=== PATIENT | female | born 1970 | race Two or more races ===

== ENCOUNTER 2018-07-17 16:22 | Emergency (ER) | payer MEDICAID ==
[~2018-07-17] VITALS: Ht 154.9 cm; Wt 95.3 kg
[2018-07-17 16:53] VITALS: BP 145/93
== END 2018-07-17 17:42 | disposition home or self-care (01) ==
LOC: ER 16:31
DX: R05 Cough (principal)
CPT/HCPCS: 71046

== ENCOUNTER 2025-05-08 02:29 | Emergency (ER) | payer MEDICAID, OTHER ==
[~2025-05-08] VITALS: Ht 154.9 cm; Wt 87.2 kg
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
[2025-05-08 03:12] LABS: Hematocrit 38.1 % (36.0-46.0); Hemoglobin 12.7 g/dL (12.2-16.2); Mean Corpuscular Hemoglobin 28.1 pg (28.0-32.0); Mean Corpuscular Volume 84.4 fL (80.0-100.0); Nucleated Red Blood Cells % 0.0 %
[2025-05-08 03:18] LABS: Chloride 102 mmol/L (98-107); Sodium 140 mmol/L (136-145)
[2025-05-08 03:19] LABS: Anion Gap 10 (5-15); Calcium 9.7 mg/dL (8.7-10.4); Carbon Dioxide 28 mmol/L (20-31)
[2025-05-08 03:21] LABS: Potassium 3.2 mmol/L (3.5-5.1)
[2025-05-08 03:24] LABS: BUN/Creatinine Ratio 16.3 (10.0-20.0); Blood Urea Nitrogen 13 mg/dL (9-23); Glucose 116 mg/dL (74-106)
--- NOTE | 2025-05-08 04:01 | DVH ---
CHEST RADIOGRAPH Indication: left upper chest wall pain Technique: Frontal and lateral view of the chest was obtained Comparison: None FINDINGS: Lines and Tubes: None Lungs: Clear. Right hemidiaphragmatic elevation. Pleura: No effusion. No pneumothorax. Cardiomediastinal contours: Unremarkable Bones: Unremarkable IMPRESSION: 1. No evidence of acute disease.
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
[2025-05-08 04:09] VITALS: BP 142/80; PULSE 77; RESP 14; TEMP 98.4; O2SAT 96
[2025-05-08] MEDS: CYCLOBENZAPRINE HCL 10 MG TAB PO ONE (04:12)
[2025-05-08] MEDS: KETOROLAC TROMETH 30 MG/ML 1ML VIAL IM ONE (04:12)
[2025-05-08] MEDS: POTASSIUM EFFERVESENT TAB 25 MEQ PO ONE (04:13)
[2025-05-08 04:41] LABS: Urine Protein, UAD Negative (Negative)
[2025-05-08] MEDS ORDERED: CYCL-839 PO (06:20)
== END 2025-05-09 06:31 | disposition home or self-care (01) ==
LOC: EDUNIT# 02:29 → ER 02:29
DX: M25.512 Pain in left shoulder (principal); E11.9 Type 2 diabetes mellitus without complications; Z79.84 Long term (current) use of oral hypoglycemic drugs; Z79.899 Other long term (current) drug therapy; V49.40XA Driver injured in collision with unspecified motor vehicles in traffic accident, initial encounter; Y93.89 Activity, other specified; Y92.488 Other paved roadways as the place of occurrence of the external cause; Y99.8 Other external cause status
CPT/HCPCS: 36415; 71046; 72170; 73030; 80048; 81001; 83735; 84702; 85025; 96372; 99284; J1885